=== PATIENT | male | born 1980 | race Caucasian/White ===

== ENCOUNTER → 2022-10-20 09:36 | Outpatient (CLI) | payer OTHER, SELFPAY ==
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
== END ==
DX: S06.9X0A Unspecified intracranial injury without loss of consciousness, initial encounter (principal); V29.99XA Rider (driver) (passenger) of other motorcycle injured in unspecified traffic accident, initial encounter
CPT/HCPCS: 70551